=== PATIENT | female | born 1955 | race Caucasian/White ===

== ENCOUNTER 2021-04-12 05:33 | Observation (INO) | payer BC ==
[~2021-04-12] VITALS: Ht 160 cm; Wt 80.0 kg
[2021-04-12] MEDS ORDERED: NIFEDIPINE ER30 M1 PO (05:41)
[2021-04-12] MEDS ORDERED: METOPROL TAR25 MG PO (05:42)
[2021-04-12] MEDS ORDERED: ZETIA10 MG PO (05:43)
[2021-04-12] MEDS ORDERED: CLOPIDOGREL75 MG PO (05:44)
[2021-04-12] MEDS ORDERED: METFORMIN500 M2 PO (05:45)
[2021-04-12] MEDS ORDERED: LISINOPRIL10 MG PO (05:45)
[2021-04-12] MEDS ORDERED: ASPIRIN81 MG PO (05:46)
[2021-04-12] MEDS ORDERED: B COMPLE2 PO (05:46)
[2021-04-12] MEDS ORDERED: COQ-1030 M1 PO (05:47)
[2021-04-12] MEDS ORDERED: MULTI VIT PO (05:47)
[2021-04-12] MEDS ORDERED: CALCIUM 1000 + D PO (05:49)
[2021-04-12] MEDS ORDERED: BIOTIN MAXI10000 MC1 PO (05:50)
--- NOTE | 2021-04-12 05:51 | NUR ---
PT ARRIVED VIA EMS, COMPLAINIG OF CHEST PRESSURE, HAD STENT IN OCTOBER EMS GAVE 3 BABY ASPIRIN AND 1 NITRO THAT RELIEVED PAIN
--- NOTE | 2021-04-12 06:17 | NUR ---
Reassessment of patient completed. No distress noted.
[2021-04-12 06:39] LABS: HEMOGLOBIN 12.7 g/dl (12.0-16.0); MEAN CELL VOLUME 95.5 fL CALC (80.0-100.0); MEAN CORPUSCULAR HGB 31.9 pG CALC (26.0-32.0); MEAN CORPUSCULAR HGB CONC 33.4 g/dL CAL (32.0-36.0); NEUT# 3.58 thou/uL (2.00-7.15); RED BLOOD COUNT 3.98 mill/uL (4.20-5.60); RED CELL DISTRI WIDTH 12.9 % (11.5-15.5)
[2021-04-12 06:45] LABS: ALBUMIN 3.9 g/dL (3.2-5.0); ALKALINE PHOSPHATASE 84 u/l (38-126); AMYLASE 68 u/l (30-110); ANION GAP 11 (6-22 (CALC)); BILIRUBIN, TOTAL 0.2 mg/dL (0.0-1.4); BUN 22 mg/dL (8-23); BUN/CREATININE RATIO 32 (12-20 (CALC)); CARBON DIOXIDE 22 mmol/l (22-30); CHLORIDE 107 mmol/l (95-108); CREATININE 0.7 mg/dL (0.5-1.0); GFR > 60 ML/MIN (>=60 (CALC)); GFR FOR AFR.AMER. > 60 ML/MIN (>=60 (CALC)); LIPASE 113 u/l (23-300); POTASSIUM 4.3 mmol/l (3.5-5.1); SGOT/AST 26 u/l (9-36); SODIUM 136 mmol/l (137-146); TOTAL PROTEIN 6.8 g/dL (6.3-8.2)
[2021-04-12 06:47] LABS: D-DIMER 0.42 mg/L (0.19-0.60)
[2021-04-12 06:51] LABS: ACT PARTIAL THROMBO TIME 23.6 SECONDS (20.0-32.5); INTERNATIONAL NORMALIZED RATIO 0.9 RATIO (0.7-1.3); PROTHROMBIN TIME 9.5 SECONDS (9.0-12.5)
[2021-04-12 06:57] LABS: MYOGLOBIN 22 ng/mL (0 - 62)
--- NOTE | 2021-04-12 08:19 | NUR ---
TOOK PATIENT HER BREAKFAST TRAY. CONCERN ABOUT BEING DIABETIC AND HAVING ITEMS WITH SUGAR CONTENT SUCH RWANDAN TOAST WITH SYRUP AND APPLE JUICE. STATED SHE WOULD EAT HER OATMEAL AND BE FINE.
--- NOTE | 2021-04-12 09:15 | NUR ---
Reassessment of patient completed. No distress noted.-
--- NOTE | 2021-04-12 10:25 | NUR ---
Reassessment of patient completed. No distress noted. REPORT CALLED TO ZENAIDA ON [facility] AND VERBALIZED UNDERSTANDING.
--- NOTE | 2021-04-12 10:30 | NUR ---
PT TAKEN TO MED/SURG VIA STRETCHER WITH TELE IN PLACE. PT IN STABLE CONDITION. BELONGINGS AND PAPERWORK HANDED OFF TO AMHESH MARCANO.
--- NOTE | 2021-04-12 10:33 | NUR ---
PATIENT CAME FROM ER VIA STRETCHER BY NURSE AND AT SIDE. CALL LIGHT IN REACH.
--- NOTE | 2021-04-12 11:11 | NUR ---
ASSESSMENT DONE. PATIENT IS ALERT AND ORIENT X3. PATIENT DENIES PAIN. TELE IN PLACE #[id number]. RESPS EVEN AND UNLABORED. PATIENT DENIES NEEDS AT THIS TIME. SAFETY PRECAUTIONS REINFORCED AND CALL LIGHT IN REACH.
[2021-04-12 11:20] VITALS: BP 145/87
--- NOTE | 2021-04-12 15:19 | NUR ---
PATIENT IS RESTING IN BED WITH NO DISTRESS NOTED. PATIENT DENIES PAIN AT THIS TIME. CALL LIGHT IN REACH.
[2021-04-12 16:16] VITALS: BP 152/78
[2021-04-12 19:00] VITALS: BP 141/59
--- NOTE | 2021-04-12 20:00 | NUR ---
PATIENT SITTING UP IN THE RECLINER AT THIS TIME-AWAKE ALERT AND ORIENTEDX3. PATIENT DENIES ANY CHEST PAIN, SOB OR PALPATATIONS AT THIS TIME. TELE MONITOR IN PLACE-LAST READING WAS SR-[id number]. SALINE LOCK TO LEFT HAND INTACT AND HEALTHY WITH GOOD BLOOD RETURN. LUNGS ARE CLEAR. ABD IS SOFT WITH ACTIVE BS. DENIES ANY DIFFICULTY WITH URINATION. NO PERIPHERAL EDEMA NOTED. PULSE ARE PALPABLE. PATIENT DOES HAVE SOME BRUING NOTED TO BOTH ARMS-PATIENT DOES TAKE PLAVIX DAILY. SAFETY PRECAUTIONS REINFORCED. CALL LIGHT IN REACH. WILL CONT TO MONITOR.
--- NOTE | 2021-04-12 22:00 | NUR ---
RESTING IN BED-GLUCOSE MONITOR WAS 145-NO COVERAGE REQUIRED. HS SNACK GIVEN. NO COMPLAINTS OF PAIN OR CHEST HEAVINESS NOTED. CALL LIGHT IN REACH. WILL CONT TO MONITOR.
[2021-04-13] VITALS: BP 116/56
--- NOTE | 2021-04-13 02:00 | NUR ---
RESTING IN BED WITH EYES CLOSED-RESPS ARE EVEN AND UNLABORED. CALL LIGHT IN REACH. WILL CONT TO MONITOR.
[2021-04-13 04:00] VITALS: BP 111/54
[2021-04-13 06:16] LABS: ANION GAP 9 (6-22 (CALC)); BUN 15 mg/dL (8-23); BUN/CREATININE RATIO 24 (12-20 (CALC)); CALCULATED LDLCHOLESTEROL 76 mg/dL (62-129 (CALC)); CARBON DIOXIDE 23 mmol/l (22-30); CHLORIDE 110 mmol/l (95-108); CHOLESTEROL HDL RATIO 2.8 (<4.4 (CALC)); CREATININE 0.6 mg/dL (0.5-1.0); GFR > 60 ML/MIN (>=60 (CALC)); GFR FOR AFR.AMER. > 60 ML/MIN (>=60 (CALC)); HDL CHOLESTEROL 57 mg/dL (>=40); POTASSIUM 4.5 mmol/l (3.5-5.1); SODIUM 137 mmol/l (137-146); TOTAL CHOLESTEROL 162 mg/dl (0-199); TOTAL TRIGLYCERIDES 143 mg/dl (30-149); VLDL CHOLESTROL 29 mg/dl (1-41 (CALC))
[2021-04-13 06:20] LABS: HEMATOCRIT 35.7 % (37.0-47.0); HEMOGLOBIN 11.9 g/dl (12.0-16.0); MEAN CELL VOLUME 94.9 fL CALC (80.0-100.0); MEAN CORPUSCULAR HGB 31.6 pG CALC (26.0-32.0); MEAN CORPUSCULAR HGB CONC 33.3 g/dL CAL (32.0-36.0); RED BLOOD COUNT 3.76 mill/uL (4.20-5.60); RED CELL DISTRI WIDTH 12.7 % (11.5-15.5)
--- NOTE | 2021-04-13 08:00 | NUR ---
REPORT RECEIVED FROM MAHESH VALENTINO. PT AWAKE ALERT AND APPROPRIATE. STATES "ARE YOU HERE TO DISCHARGE ME?" POC DISCUSSED. PT DENIES ANY FURTHER CP. EAGER FOR BREAKFAST. INSTRUCTED PT TO CALL FOR ASSISTANCE, VERBALIZES UNDERSTANDING.
[2021-04-13 08:54] VITALS: BP 152/68
[2021-04-13 10:23] VITALS: BP 168/70
--- NOTE | 2021-04-13 11:41 | NUR ---
FAMILY AT BS. PT DENIES PAIN, SOB OR DISCOMFORT. EAGER FOR DISCHARGE. AWAITING ORDERS TO POC.
--- NOTE | 2021-04-13 13:50 | NUR ---
PT DISHCARGED AT THIS TIME IN STABLE CONDITION VIA WHEELCHAIR. ALL BELONGINGS WITH PATIENT. PT STATES UNDERSTANDING TO INSTRUCTIONS
== END 2021-04-13 14:00 | disposition home or self-care (01) | DRG 313 ==
LOC: ED 05:33 → ED-I 07:20 → ED 07:41 → ED-I 07:42 → MS2 07:42
PROVIDERS: Family Medicine; Nurse Practitioner; ADMIT Internal Medicine; ATTEND Internal Medicine
DX: R07.2 Precordial pain (principal); I25.10 Atherosclerotic heart disease of native coronary artery without angina pectoris; I10 Essential (primary) hypertension; E11.9 Type 2 diabetes mellitus without complications; Z95.5 Presence of coronary angioplasty implant and graft; Z79.02 Long term (current) use of antithrombotics/antiplatelets; Z79.82 Long term (current) use of aspirin; Z79.84 Long term (current) use of oral hypoglycemic drugs; Z20.822 Contact with and (suspected) exposure to COVID-19
CPT/HCPCS: G0378; J1650